=== PATIENT | female | born 1950 | race Caucasian/White ===

== ENCOUNTER 2016-12-23 11:43 | Emergency (ER) | payer MEDICARE ==
[~2016-12-23] VITALS: Wt 81.6 kg
[2016-12-23] MEDS ORDERED: PENICILLIN-VK500 MG PO (12:38)
== END 2016-12-23 13:56 | disposition home or self-care (01) ==
LOC: ED 11:43
DX: K08.89 Other specified disorders of teeth and supporting structures (principal); F17.200 Nicotine dependence, unspecified, uncomplicated

== ENCOUNTER 2019-12-18 00:11 | Emergency (ER) | payer MEDICARE ==
[~2019-12-18] VITALS: Ht 162.5 cm; Wt 77.1 kg
[~2019-12-18 00:11] MED LIST: PENICILLIN-VK500 MG PO
== END 2019-12-18 01:58 | disposition home or self-care (01) ==
LOC: ED 00:11
DX: H60.92 Unspecified otitis externa, left ear (principal); F17.200 Nicotine dependence, unspecified, uncomplicated; Z79.2 Long term (current) use of antibiotics